=== PATIENT | female | born 1985 | race Caucasian/White ===

== ENCOUNTER 2018-09-16 16:35 | Emergency (ER) | payer BC, MEDICAID ==
[2018-09-16 16:49] VITALS: RESP 16
[2018-09-16] MEDS ORDERED: Sodium Chloride 0.9% 1,000 ML IV STA (17:36)
[2018-09-16 18:27] LABS: BASO % 0.5 % (0.0-2.0); EOS # 0.1 K/uL (0.0-0.7); EOS % 1.1 % (0.0-4.0); HEMOGLOBIN 11.9 g/dL (12.0-16.0); LYMPH # 1.9 K/uL (1.0-4.3); MEAN CELL VOLUME 92.9 fl (81.0-99.0); MEAN CORPUSCULAR HEMOGLOBIN 30.1 pg (27.0-31.0); MEAN CORPUSCULAR HGB CONC 32.4 g/dL (33.0-37.0); MEAN PLATELET VOLUME 10.3 fl (7.2-11.7); MONO # 0.4 K/uL (0.0-0.8); MONO % 6.1 % (0.0-10.0); NEUT # 3.7 K/uL (1.8-7.0); NEUT % 61.3 % (50.0-75.0); RBC 3.94 Mil/uL (3.80-5.20); RED CELL DISTRIBUTION WIDTH 12.4 % (11.5-14.5)
[2018-09-16 18:39] LABS: ALB/GLOB RATIO 1.3 (1.0-2.1); ALBUMIN 4.1 g/dL (3.5-5.0); ALT/SGPT 48 U/L (9-52); AST/SGOT 36 U/L (14-36); BLOOD UREA NITROGEN 8 mg/dl (7-17); CALCIUM 8.9 mg/dL (8.4-10.2); GFR NON-AFRICAN AMERICAN > 60; LIPASE 42 U/L (23-300)
[2018-09-16] MEDS ORDERED: Alum-Mag Hydrox-Simethicone Susp (30 mL) PO STA (19:00)
[2018-09-16] MEDS ORDERED: Alum-Mag Hydrox-Simethicone Susp (30 mL) ONE (19:10)
--- NOTE | 2018-09-16 19:26 | ED PDOC ---
HPI: Abdomen Time Seen by Provider: 09/16/18 16:55 Chief Complaint (Nursing): GI Problem Chief Complaint (Provider): Epigastric abdominal pain x 1 month History Per: Patient History/Exam Limitations: no limitations Onset/Duration Of Symptoms: Days Outside of [place] travel?: No Current Symptoms Are (Timing): Still Present Location Of Pain/Discomfort: Epigastric Quality Of Discomfort: Sharp, Burning Associated Symptoms: Nausea, Loss Of Appetite. denies: Fever, Chills, Vomiting, Diarrhea, Back Pain, Chest Pain, Constipation, Urinary Symptoms Exacerbating Factors: None Additional Complaint(s): 33 yo female with no medical problems presents for evaluation of epigastric abdominal pain for 1 month. Pt states that it is always mild but gets worse wehn eating. Pt denies fever/chills. No vomiting. PT states that she came today to ER because she has not eaten all day. Past Medical History Reviewed: Historical Data, Nursing Documentation, Vital Signs Vital Signs: Last Vital Signs Temp 99.2 F 09/16/18 16:45 Pulse 82 09/16/18 16:45 Resp 16 09/16/18 16:45 BP 121/86 09/16/18 16:45 Pulse Ox 100 09/16/18 16:45 - Medical History PMH: Hypothyroidism - Surgical History Surgical History: Tonsillectomy - Family History Family History: States: No Known Family Hx - Living Arrangements Living Arrangements: With Family - Social History Current smoker - smoking cessation education provided: No - Immunization History Hx Tetanus Toxoid Vaccination: No Hx Influenza Vaccination: No Hx Pneumococcal Vaccination: No - Allergies Allergies/Adverse Reactions: Allergies Allergy/AdvReac Type Severity Reaction Status Date / Time No Known Allergies Allergy Verified 09/16/18 16:45 Review of Systems ROS Statement: Except As Marked, All Systems Reviewed And Found Negative Constitutional: Negative for: Fever, Chills Gastrointestinal: Positive for: Nausea, Abdominal Pain. Negative for: Vomiting, Diarrhea Physical Exam - Reviewed Nursing Documentation Reviewed: Yes Vital Signs Reviewed: Yes - Physical Exam Appears: Positive for: Well, Non-toxic, No Acute Distress Head Exam: Positive for: ATRAUMATIC, NORMAL INSPECTION, NORMOCEPHALIC Skin: Positive for: Normal Color, Warm, DRY Eye Exam: Positive for: Normal appearance ENT: Positive for: Normal ENT Inspection Neck: Positive for: Normal, Painless ROM Cardiovascular/Chest: Positive for: Regular Rate, Rhythm Respiratory: Positive for: Normal Breath Sounds. Negative for: Accessory Muscle Use, Respiratory Distress Gastrointestinal/Abdominal: Positive for: Soft, Tenderness (Epigastric ), Rebound. Negative for: Normal Exam, Distended, Guarding Back: Positive for: Normal Inspection Extremity: Positive for: Normal ROM Neurologic/Psych: Positive for: Alert, Oriented - Laboratory Results Result Diagrams: 09/16/18 18:20 09/16/18 18:20 - ECG O2 Sat by Pulse Oximetry: 100 Pulse Ox Interpretation: Normal Medical Decision Making Medical Decision Making: Labs normal. GI cocktail given for pain. Endorsed to PACO [place] pending US and re-evaluation of pain. Disposition - Clinical Impression Clinical Impression: Abdominal pain - Patient ED Disposition Is Patient to be Admitted: Transfer of Care - Disposition Disposition: Transfer of Care Disposition Time: 19:38 Condition: GOOD Forms: [email or web address] ([place])
[2018-09-16 19:57] VITALS: BP 103/54; PULSE 69; TEMP 98.2; O2SAT 98
--- NOTE | 2018-09-16 20:41 | ED PDOC ---
- Laboratory Results Result Diagrams: 09/16/18 18:20 09/16/18 18:20 - ECG O2 Sat by Pulse Oximetry: 98 - Progress ED Course And Treament: Case endorsed to headline writer from Miguel ANTONIO pending ultrasound, re-eval Clinical history: Right upper quadrant pain. Findings: The pancreas is limited in visualization secondary to overlying bowel gas, but appears grossly unremarkable. The liver demonstrates increased echotexture and echogenicity, with no mass lesions. The gallbladder contains several echogenic shadowing foci. There is no gallbladder wall thickening. The common bile duct measures 6 mm and is within normal limits. The right kidney measures 11.3 cm in length. There is no evidence of hydronephrosis or nephrolithiasis. There is no ascites. Impression: 1. Cholelithiasis without evidence of acute cholecystitis. 2. Fatty infiltration of the liver. Patient educated on findings, discharged with rx Naproxen Advised follow up with general surgery, diet modification Return precautions given Disposition - Clinical Impression Clinical Impression: Gallstones - POA Present On Arrival: None - Disposition Referrals: Chandan Mendieta MD [Staff Provider] - Disposition: Routine/Home Disposition Time: 20:56 Condition: IMPROVED Prescriptions: Naproxen [Naprosyn] 500 mg PO Q12 PRN #20 tablet PRN Reason: Pain, Moderate (4-7) Instructions: Gallstones Forms: [facility] ([place])
--- NOTE | 2018-09-17 12:16 | US ---
Date of service: 09/16/2018 HISTORY: pain, worse with eating COMPARISON: None. TECHNIQUE: Sonographic evaluation of the right upper quadrant of the abdomen. FINDINGS: LIVER: Measures 15.5 cm in length. Diffusely increased echogenicity of the liver parenchyma. Consistent with fatty infiltration. Smooth contour. No mass. No biliary ductal dilatation. GALLBLADDER: Gallbladder contains multiple calculi with posterior shadowing. There is soft tissue density between the wall of the gallbladder and the calculi. It is not clear whether this represents sludge or mural thickening. This raises some concern for the possibility of gallbladder neoplasm. Consider further evaluation with gadolinium enhanced magnetic resonance imaging. No pericholecystic fluid. Negative sonographic Tian sign. COMMON BILE DUCT: Measures 6 mm. No stones. No dilatation. PANCREAS: Unremarkable as visualized. No mass. No ductal dilatation. RIGHT KIDNEY: Measures 11.3 cm in length. Normal echogenicity. No calculus, mass, or hydronephrosis. AORTA: No aneurysmal dilatation. IVC: Unremarkable. OTHER FINDINGS: None . IMPRESSION: Fatty liver. Cholelithiasis. Soft tissue density within gallbladder lumen, nonspecific. Sludge versus gallbladder neoplasm. If cholecystectomy is not contemplated then consider further evaluation with gadolinium enhanced magnetic resonance imaging for evaluation of this soft tissue density within the gallbladder lumen. The preliminary findings for this examination were reported by [facility] at 8:39 p.m. on 09/16/2018. There is discordance of this report with the preliminary findings. Soft tissue density within the gallbladder lumen was not described in the preliminary report of this examination. Please see comments and recommendations above.
== END 2018-09-16 21:07 | disposition home or self-care (01) ==
LOC: H.ER 16:35
DX: K80.20 Calculus of gallbladder without cholecystitis without obstruction (principal); E03.9 Hypothyroidism, unspecified; K76.0 Fatty (change of) liver, not elsewhere classified
CPT/HCPCS: 76705; 80053; 81025; 83690; 85025; 96360; 99284; J1885; J7030